=== PATIENT | female | born 1970 | race Caucasian/White ===

== ENCOUNTER 2016-08-25 16:31 | Emergency (ER) | payer BC ==
[~2016-08-25 16:31] MED LIST: AMARYL1 M1 PO; ANTIVERT25 M1 PO; BACTRIM DS TAB1 EAC2 PO; CHILDREN'S ASPI81 M1 PO; CIPROFLOXACIN750 M1 PO; CYMBALTA30 M1 PO; DULERA 100 MCG/13 G1 INH; DULOXETINE HCL60 M1 PO; LISINOPRIL10 M1 PO; METFORMIN HCL500 M2 PO; NORCO 5-325 TA1 EACH PO; OMEPRAZOLE40 M2 PO; PRAVACHOL40 M1 PO; PREDNISONE10 M1 PO; PROAIR HFA8.5 GM INH; PROTONIX40 M2 PO; SYNTHROID175 MC1 PO; VALIUM5 M1 PO; VERAPAMIL ER P100 MG PO; WELLBUTRIN XL150 M1 PO; XANAX0.25 M1 PO; ZEBETA5 M2 PO; ZESTRIL5 M1 PO
[2016-08-25] MEDS ORDERED: VICTOZA 3-0.6 MG/0.2 SC (16:40)
[2016-08-25] MEDS ORDERED: GLYBURIDE2.5 M2 PO ×2 (16:41)
[2016-08-25] MEDS ORDERED: SYNTHROID0.2 MG/TAB PO ×2 (16:42→16:43)
[2016-08-25] MEDS ORDERED: VITAMIN D250000 UNI1 PO (16:45)
[2016-08-25] MEDS ORDERED: ZOLOFT50 M1 PO (16:45)
[2016-08-25 17:31] LABS: BASO % 0.3 % (0-2); EOS % 1.6 % (0-7); EOSINOPHIL ABSOLUTE COUNT 0.2 tho/cmm (0.0-0.7); HCT-HEMATOCRIT 35.9 % (34.0-49.0); HGB-HEMOGLOBIN 11.7 gm/dl (12.0-15.5); IMMATURE GRANULOCYTES ABSOLUTE 0.03 tho/cmm (0-0.03); IMMATURE GRANULOCYTES PERCENT 0.2 % (0-0.3); LYMPH % 18.2 % (20-45); LYMPH ABSOLUTE COUNT 2.2 tho/cmm (0.8-4.5); MCH (MEAN CORPUSCULAR HGB) 25.6 pg (28.0-32.0); MCHC MEAN CORPUSCULAR HGB CONC 32.6 % (32.0-36.0); MCV (MEAN CELL VOLUME) 78.6 fl (82.0-96.0); MEAN PLATELET VOLUME 9.6 cmc (9.4-12.4); MONO % 5.1 % (0-12); MONOCYTE ABSOLUTE COUNT 0.6 tho/cmm (0.0-1.2); NEUTROPHIL ABSOLUTE COUNT 9.1 tho/cmm (1.6-8.0); NEUTROPHIL-AUTOMATED 9.1 tho/cmm (1.6-8.0); NEUTROPHILS % 74.6 % (40-80); PLATELET COUNT 384 tho/cmm (150-450); RED BLOOD COUNT 4.57 mil/cmm (4.00-5.20); RED CELL DISTRIBUTION WIDTH 16.9 % (12.4-16.4); WHITE BLOOD COUNT 12.2 tho/cmm (4.0-10.0)
[2016-08-25 17:47] LABS: ANION GAP 13 mmol/L (0-20); BLOOD UREA NITROGEN 8 mg/dl (6-24); CALCIUM 9.2 mg/dl (8.5-10.5); CARBON DIOXIDE-VENOUS 26 mmol/L (22-32); CHLORIDE 105 mmol/l (96-110); CREATININE 0.93 mg/dl (0.50-1.10); GLUCOSE 161 mg/dL (70-110); POTASSIUM 3.8 mmol/L (3.7-5.1); SODIUM 140 mmol/L (135-145); eGFR VALUE FOR BLACK 85 mL/Min
== END 2016-08-25 20:24 ==
LOC: EDMED 16:31
PROVIDERS: Emergency Medicine
DX: F41.0 Panic disorder [episodic paroxysmal anxiety] (principal); F41.9 Anxiety disorder, unspecified; E11.9 Type 2 diabetes mellitus without complications; Z79.899 Other long term (current) drug therapy; Z86.718 Personal history of other venous thrombosis and embolism; Z86.711 Personal history of pulmonary embolism; Z90.49 Acquired absence of other specified parts of digestive tract
CPT/HCPCS: J2060; J2270; J2405; J7030; Q9967